=== PATIENT | male | born 1965 | race Caucasian/White ===

== ENCOUNTER → 2017-11-09 | Outpatient (REF) ==
[~2017-11-09] MED LIST: ACET500C OR; ibuprofen PO
--- NOTE | 2017-11-10 14:33 | REP ---
Clinical: Pain and disability. Technique: AP, lateral, open mouth views of the cervical spine. Findings: Early advanced multilevel degenerative changes include endplate sclerosis/heterogeneity, joint space narrowing, anterior spurring/early osteophyte formation. No acute fracture / compression injury or subluxation. Alignment and lordosis maintained. Impression: Early advanced multilevel degenerative changes. Signed by Neel Chan MD 11/09/2017 11:54 P
--- NOTE | 2017-11-10 14:33 | REP ---
Nickel: Pain and disability. Technique: AP, lateral, cone down views of the lumbosacral spine. Findings: Alignment and lordosis is relatively maintained and there is no evidence for acute fracture / compression injury or subluxation. Advanced multilevel degenerative changes involving the visualized lower thoracic and lumbosacral spine include osteophytosis, endplate sclerosis, disc space narrowing. Impression: Early advanced multilevel degenerative changes. No acute fracture / compression injury or subluxation. Signed by Neel Chan MD 11/10/2017 12:02 A
== END ==
LOC: M SMT 13:55
PROVIDERS: ATTEND Internal Medicine
DX: M51.36 Other intervertebral disc degeneration, lumbar region (principal); M51.35 Other intervertebral disc degeneration, thoracolumbar region